=== PATIENT | male | born 1960 | race Caucasian/White ===

== ENCOUNTER 2022-06-05 08:13 | Outpatient (CLI) | payer BC, SELFPAY ==
--- NOTE | 2022-06-09 21:25 | WPDHOMESLEEP ---
Sleep Study - Home Unattended Date of Study: 06/05/22 Ordering Provider: Saji Mayers MD Interpreting Provider: Martha Giron, DO Home Sleep Study Type: Watch PAT Height: 1.88 m Weight: 136.078 kg Body Mass Index: 38.5 Neck Circumference (inches): 19 Lambert: 3 Reason for Sleep Study Snoring, paroxysmal nocturnal dyspnea Sleep History The patient is a 61-year-old male with congestive heart failure with reduced ejection fraction, hypertension, atrial fibrillation, history of tobacco use and obesity that had a sleep study ordered by his photo engraver for evaluation of sleep apnea. The patient rarely awakens from sleep short of breath. He denies awakening at night with heartburn, belching or cough. He frequently snores loudly enough that others complain. He rarely has trouble sleeping when he has a cold. he rarely wakes up gasping for air throughout the night. He frequently has breathing problems at night observed by himself or others. He rarely sweats excessively at night. He denies having heart palpitations or irregular heartbeats during the night. He rarely falls asleep during the day but never while driving. He denies sleep paralysis, cataplexy and hypnagogic / hypnopompic hallucinations. He denies having trouble at school or work due to sleepiness. He rarely feels afraid of going to sleep. He denies having nightmares. He rarely remembers his dreams. He frequently has anxiety. He rarely has muscular tension. He denies kicking during the night. He denies having crawling and aching feelings in his legs and denies having leg pain during the night. He denies grinding his teeth during sleep and denies awakening with morning jaw pain. He is rarely bothered by pain during the day and never awakened by pain during the night. He rarely wakes up feeling stiff in the morning. He rarely wakes up with sore or achy muscles. He rarely wakes up with pain in the neck, spine or other joints. He goes to bed between 8-9 p.m. on weekdays and between 11:00 p.m. to midnight on the weekends. It takes him less than 15 minutes to fall asleep. He wakes up once throughout the night for unknown reasons. When he awakens, he will usually fall asleep on his sectional for an hour 2 and get up and go to bed. He is able to fall back asleep within 10-15 minutes. He wakes up at 6:00 a.m. on both weekdays and weekends. He typically gets 6-7 hours of sleep per night. He does not stay in bed after waking up in the morning. He currently lives with his . He does not consume any caffeinated beverages within 2 hours of bedtime. He does not engage in physical exercise before bedtime. He will read and watch television before falling asleep. He will take naps in the afternoon or the evening and they are refreshing. He quit smoking cigarettes 6 years ago. He consumes 3-4 alcoholic beverages per week. He denies recreational drug use. [facility] Past Medical History Medical History Atrial fibrillation Hypertension Surgical History Surgical History History of vasectomy [place] teeth removed Family History Family History Grandparent Diabetes mellitus Social History Social History Smoking status: Former smoker Second hand tobacco smoke exposure: No Smoking end date: 03/10/14 Additional smoking assessment comments: Pt smokes 1 cigar/month Alcohol intake: current Drinks per week: 2 Substance use: never Substance use type: does not use Living arrangements: with family Occupation/Education: occupation Gender identity (if verbalized by the patient): Male Sexual Orientation (if Verbalized by the Patient): Straight or Heterosexual Medications Home Medications Medication Instructions Record
[2022-06-09 21:45] VITALS: BMI 38.5
--- NOTE | 2022-07-12 11:57 | SLEEP ---
pt has follow up appointment with dr neville
== END 2022-06-07 11:24 | disposition home or self-care (01) ==
LOC: ANHCSM 08:14
PROVIDERS: PCP Family Medicine; Visit Provider Internal Medicine Cardiovascular Disease
DX: G47.10 Hypersomnia, unspecified (principal); R06.09 Other forms of dyspnea; G47.33 Obstructive sleep apnea (adult) (pediatric)
CPT/HCPCS: 95800

== ENCOUNTER 2022-08-15 09:00 | Outpatient (NON) | payer BC, SELFPAY | END 2022-08-15 09:01 | disposition home or self-care (01) | LOC: ANHLAB 08-16 13:02 | PROVIDERS: PCP Family Medicine; Visit Provider Nurse Practitioner | DX: L72.0 Epidermal cyst (principal) | CPT/HCPCS: 88304 ==